=== PATIENT | female | born 1985 | race Caucasian/White ===

== ENCOUNTER 2020-07-27 17:43 | Emergency (ER) | payer OTHER ==
[~2020-07-27] VITALS: Ht 175.3 cm; Wt 89.1 kg
[2020-07-27 17:50] VITALS: BP 109/69
[2020-07-27] MEDS ORDERED: acetaminophen 325mg tablet PO ONE (18:10)
[2020-07-27] MEDS ORDERED: AMOX-422 PO (18:34)
== END 2020-07-27 18:51 | disposition home or self-care (01) ==
LOC: ER 17:44
DX: S93.491A Sprain of other ligament of right ankle, initial encounter (principal); M25.571 Pain in right ankle and joints of right foot; M25.471 Effusion, right ankle; Z79.2 Long term (current) use of antibiotics; W54.0XXA Bitten by dog, initial encounter; Y93.89 Activity, other specified; Y92.89 Other specified places as the place of occurrence of the external cause; Y99.8 Other external cause status
CPT/HCPCS: 73610; 99284